=== PATIENT | male | born 1985 | race Caucasian/White ===

== ENCOUNTER 2020-11-14 10:59 | Day surgery (SDC) | payer MEDICAID ==
[~2020-11-14] VITALS: Ht 182.9 cm; Wt 104.3 kg
[~2020-11-14 10:59] MED LIST: DOXYCYCLINE HY100 M2 PO; HYDROCODON-ACE1 EAC7 PO
[2020-11-14 13:34] VITALS: BP 135/82; Ht 182.9 cm; Wt 104.3 kg
--- NOTE | 2020-11-14 17:04 | NUR ---
DC INSTRUCTIONS REVEIWED AT THIS TIME, PT VERBALIZES UNDERSTANDING. IV REMOVED AT THIS TIME, INTACT, NO REDNESS OR SWELLING NOTED AT SITE.
--- NOTE | 2020-11-14 17:12 | NUR ---
DC INSTRUCTIONS GIVEN TO PT/FAMILY. STATE UNDERSTANDING. DC'D IV CATH FULLY INTACT. PT LEFT UNIT VIA WC AT 1709
--- NOTE | 2020-11-14 17:21 | NUR ---
PT LEAVING OPS AT THIS TIME VIA WC, NAD NOTED.
--- NOTE | 2020-11-15 07:18 | OP ---
PATIENT NAME: LOULOU KIRK MEDICAL RECORD: [id number] :87 LOCATION:[facility] ADMISSION DATE: SURGEON: GASTON RYAN DO DATE OF OPERATION: 11/14/2020 PROCEDURE PERFORMED: Flexor tendon repair of the left middle finger. PREOPERATIVE DIAGNOSIS: Flexor tendon laceration of the left middle finger and finger laceration. POSTOPERATIVE DIAGNOSIS: Flexor tendon laceration of the left middle finger and finger laceration. INDICATION: Mr. Kirk is a 35-year-old male who had a chain cut through his left middle finger yesterday. He has seen his primary care who astutely noticed the flexor tendon injury. When going to repair after his scan, called me and sent him into my office. I told him I would repair his tendon today. He was brought to the clinic and I told him of the risks of this including contracture, re-rupture, fracture, bleeding, damage to nerves or vessels, need for further surgery, continued pain and he was okay with all that and signed the consent. SURGEON: Gaston Ryan DO DESCRIPTION OF PROCEDURE: The patient was taken to the operative suite, laid in the supine position, given general anesthetic, 2 grams of Ancef and sedated and LMA was placed. The left upper extremity was then prepped and draped in sterile fashion. A timeout was performed; everyone was in agreement with the correct site, side, patient and procedure. I then exsanguinated the left upper extremity and tourniquet was inflated to 250 mmHg, it was up for 25 minutes. I then cut the sutures that were tacked down the L-type laceration that went from the ulnar volar aspect and then cut across just proximal to the PIP joint, zone 1 injury and distal to the termination of the flexor digitorum superficialis. I then went across to the radial side in an L-shape approximately 8 cm in length. I then opened it up and saw that the flexor tendon was indeed torn and lacerated approximately 90% at the distal edge. I then pulled it up by flexing the finger and taking a 25-gauge needle proximally in the tendon to hold it. I then did a modified Billy repair with 4-0 Ethibond. I put two through and through giving a 4-strand repair. I then oversewed that with a running locking 6-0 Prolene and secured that. I then released the needle and had good tension on it and flexed the finger and pushed down just proximal to the carpal tunnel to push on the flexor tendon to ensure that it flexed without gapping and there was no gap in the repair site. Once that was completed, I let the tourniquet down, irrigated and closed with 4-0 nylon in a horizontal mattress on one stitch and then simple interrupted on the rest. I then dressed with Adaptic, 4 x 4, Tubegauz and put a dorsal blocking splint on him, keeping his finger flexed and sterilely secured with Coban. He was then awakened and taken to recovery in stable condition. BLOOD LOSS: Minimal. COMPLICATIONS: None. 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
== END 2020-11-14 17:09 | disposition home or self-care (01) ==
LOC: D.OPS 10:59
PROVIDERS: ATTEND Orthopaedic Surgery
DX: S56.124A Laceration of flexor muscle, fascia and tendon of left middle finger at forearm level, initial encounter (principal); W45.8XXA Other foreign body or object entering through skin, initial encounter; Y93.9 Activity, unspecified; Y92.9 Unspecified place or not applicable